=== PATIENT | female | born 1980 | race Hispanic/Latino ===

== ENCOUNTER 2023-10-16 03:40 | Emergency (ER) | payer SELFPAY ==
[~2023-10-16] VITALS: Ht 167.6 cm; Wt 52.2 kg
[2023-10-16] MEDS ORDERED: sulfaMETHOX-TMP DS 800/160 TAB PO SCH (04:30)
[2023-10-16] MEDS ORDERED: CEPH500B PO (04:46)
[2023-10-16] MEDS: cePHALexin 500 MG CAPSULE PO ONE (04:47)
[2023-10-16 04:50] VITALS: BP 132/88; PULSE 98; RESP 17; TEMP 97.5; O2SAT 98
== END 2023-10-16 04:55 | disposition home or self-care (01) ==
LOC: EDH 03:40
DX: L02.212 Cutaneous abscess of back [any part, except buttock and flank] (principal); E11.9 Type 2 diabetes mellitus without complications; Z79.899 Other long term (current) drug therapy

== ENCOUNTER 2024-11-08 13:51 | Emergency (ER) | payer BC ==
[~2024-11-08] VITALS: Ht 167.6 cm; Wt 52.6 kg
[~2024-11-08 13:51] MED LIST: CEPH500B PO
--- NOTE | 2024-11-08 14:45 | NUR ---
PTS FAMILY REPORTED THAT THEY WERE WORRIED PT HAD RISKY BEHAVIOR AND HAD VOICED INTENTION OF "JUMPING OUT OF CAR" YESTERDAY. FAMILY IS CONCERNED FOR PT. DR. HICKEY WAS INFORMED. DR. HICKEY SPOKE TO PT ABOUT COMMENTS MADE YESTERDAY AND CONCERNS ABOUT SI/HI. PT STATES SHE IS NOT SUICIDAL OR HOMICIDAL. PT STATES SHE WAS ANGRY YESTERDAY AND MADE THOSE COMMENTS IN ANGER. PT STATES SHE HAS A LONG HISTORY OF UNTREATED DEPRESSION BUT SHE DOES NOT FEEL LIKE SHE IS IN ANY MORE DANGER THAN USUAL. FAMILY IS CONCERNED BECAUSE SHE WAS IN DETENTION YESTERDAY DUE TO DRUG USE. PT STATES SHE IS NOT HIGH TODAY AND IS HERE IS [facility] ATTEMPTING TO RECEIVE CARE.
--- NOTE | 2024-11-08 15:21 | NUR ---
VAGINAL EXAM PERFORMED BY DR HICKEY, NO PROLAPSE NOTED ON EXAM, NO FECAL MATER MATERIAL NOTED IN VAGINAL CANAL. DR. HICKEY DID NOTE COPIOUS THICK WHITE DISCHARGE ON EXAM. DR. HICKEY ALSO TOOK THIS TIME TO EXAMINE PTS TOENAILS.
[2024-11-08 15:45] LABS: APPEARANCE,URINE CLEAR (CLEAR); GLUCOSE, URINE (UA) >=1000 mg/dL (NEGATIVE); LEUKOCYTE ESTERASE ,URINE 25 Leu/uL (NEGATIVE); NITRATE,URINE NEGATIVE (NEGATIVE); OCCULT BLOOD,URINE NEGATIVE (NEGATIVE); SQUAMOUS EPITHELIAL CELL,UR RARE /HPF (0-2)
[2024-11-08] MEDS ORDERED: CEPH500B PO (16:03)
--- NOTE | 2024-11-08 16:03 | ERN ---
General Chief Complaint: Vaginal Problems/Bleeding Stated Complaint: VAGINAL PAIN Time Seen by MD: 13:55 Source: patient History of Present Illness Initial Comments PATIENT IS A 44-YEAR-OLD FEMALE COMING IN WITH MULTIPLE COMPLAINTS. PER PATIENT SHE FELL 2 L COME OUT SHE WAS TOLD BEFORE THAT SHE HAD A PROLAPSED UTERUS ALONG WITH THE SHE IS COMPLAINING OF LOWER EXTREMITY DISCOMFORT SPECIFICALLY THERE TOENAILS. FAMILY MEMBERS CLOSE PATIENT WANTED TO HARM HERSELF BUT WHEN ASKED PATIENT IN FRONT OF FAMILY MEMBERS HE STATES THAT HE DID NOT WANT TO HURT HERSELF. Allergies: Coded Allergies: No Known Allergies (Unverified Allergy, Unknown, 10/16/23) Home Meds Active Scripts Cephalexin Monohydrate (Keflex) 500 Mg Cap, 500 MG PO TID for 7 Days, #21 CAP Prov:ERICKSON KENNEDY 10/16/23 Past Medical History Past Medical History: No Pertinent History Medical History Other: NON COMPLIANT FOR OVER THREE YEARS Past Surgical History: None ROS Dictation CONSTITUTIONAL: NO CHILLS, NO FEVER, NO WEAKNESS, NO DIAPHORESIS, NO MALAISE. HEAD/FACE: NO SIGNS OF TRAUMA. EENT: NO EYE PAIN, NO BLURRED VISION, NO TEARING, NO DOUBLE VISION, NO EAR PAIN, NO EAR DISCHARGE, NO NOSE PAIN, NO NASAL CONGESTION, NO THROAT PAIN, NO THROAT SWELLING, NO MOUTH PAIN. RESPIRATORY: NO COUGH, NO ORTHOPNEA, NO SOB, NO STRIDOR, NO WHEEZING. CARDIOVASCULAR: NO CHEST PAIN, NO EDEMA, NO PALPITATIONS, NO SYNCOPE. GASTROINTESTINAL/ABDOMINAL: NO ABDOMINAL PAIN, NO CONSTIPATION, NO DIARRHEA, NO NAUSEA, NO VOMITING. GENITOURINARY: ABNORMAL DISCHARGE, NO DYSURIA, NO FREQUENT URINATION, NO HEMATURIA. NO COMPLAINTS OF PAIN IN THE GENITALS. MUSCULOSKELETAL: NO BACK PAIN, NO GOUT, NO JOINT PAIN, NO JOINT SWELLING, NO MUSCLE PAIN, NO MUSCLE STIFFNESS, NO NECK PAIN. INTEGUMENTARY: NO CHANGE IN COLOR, NO CHANGE IN HAIR/NAILS, NO DRYNESS, NO LESION, NO LUMPS, NO RASH. NEUROLOGICAL/PSYCH: NO ANXIETY, NOT DEPRESSED, NO EMOTIONAL PROBLEM, NO HEADACHE, NO NUMBNESS, NO PRE-EXISTING DEFICIT, NO HISTORY OF SEIZURES, NO TREMORS, NO WEAKNESS. HEMATOLOGIC/LYMPHATIC: NOT ANEMIC, NO HISTORY OF BLOOD CLOTS, NO APPARENT BLEEDING, NO BRUISING, GLANDS NOT SWOLLEN. ALL SYSTEMS NEGATIVE, EXCEPT NOTED. Physical Exam Physical Exam Dictation VITAL SIGNS: REVIEWED. GENERAL APPEARANCE: ALERT, ORIENTED X3, NO ACUTE DISTRESS, OBESE. HEAD AND FACE: NON-TRAUMATIC. EYES: PERRL, PINK CONJUNCTIVAS, EYELID NO TRAUMA, ANTERIOR CHAMBER CLEAR. EARS: PINNAS INTACT AND NO SIGNS OF TRAUMA OR ERYTHEMA. EAR CANALS CLEAR AND N O DISCHARGE. TMS NO ERYTHEMA. NOSE: NO DISCHARGE, NO BLEEDING. OROPHARYNX: MOUTH NORMAL, TEETH NO CARIES, TONGUE PINK. PHARYNX CLEAR, NO ERYTHEMA. TONSILS NO EXUDATES, NO ABSCESSES NOTED. MUCOUS MEMBRANE MOIST. NECK: SUPPLE, NON-TENDER, NO THYROMEGALY, NO MASSES, NO JVD, NO BRUITS. BREAST: DEFERRED. CHEST: NO TENDERNESS, NO CREPITUS, NO PARADOXICAL MOVEMENT, NO RETRACTIONS. LUNGS: CLEAR, WELL-VENTILATED, SYMMETRIC, NO RALES, NO WHEEZING, NO RHONCHI, NO STRIDOR, GOOD BREATH SOUNDS BILATERALLY. HEART: REGULAR RATE, REGULAR RHYTHM, NO MURMUR, NO GALLOPS. VASCULAR: NO PERIPHERAL EDEMA. ABDOMEN: SOFT, POSITIVE BOWEL SOUNDS, NONDISTENDED, NO GUARDING, NONTENDER, NO REBOUND, NO MASSES NO HEPATOMEGALY, NO SPLENOMEGALY, NO BELTRAN'S SIGN, NO HERNIAS. RECTAL: DEFERRED. GENITAL: CHAPERONED BY NURSE, VAGINAL DISCHARGE, NO UTERINE PROLAPSE NEUROLOGICAL: NORMAL SPEECH, GROSS MOTOR FUNCTION INTACT, GROSS SENSORY FUNCTION INTACT. MUSCULOSKELETAL: NECK NONTENDER, FULL RANGE OF MOTION, BACK NONTENDER, FULL R NAOMIE OF MOTION. EXTREMITIES: NONTENDER, FULL RANGE OF MOTION. LONG TOENAILS SKIN: COLOR PINK, DRY, NO TURGOR, NO RASH, NO LACERATIONS, NO ABRASIONS, NO CONTUSIONS. LYMPHATICS: DEFERRED. Results Laboratory and Microbiology Lab and Micro Result Laboratory Tests Test 11/08/24 14:06 Urine Color COLORLESS (YELLOW) Urine Appearance CLEAR (CLEAR) Urine pH 5.5 (5.0-8.0) Urine Specific [place] 1.034 (1.001-1.031) Urine Protein NEGATIVE mg/dL (NEGATIVE) Urine Glucose (UA) >=1000 mg/dL (NEGATIVE) H Urine Ketones NEGATIVE mg/dL (NEGATIVE) Urine Occult Blood NEGATIVE (NEGATIVE) Urine Nitrate NEGATIVE (NEGATIVE) Urine Bilirubin NEGATIVE mg/dL (NEGATIVE) Urine Urobilinogen 0.2 mg/dL (0.2-1.0) Urine Leukocyte Esterase 25 [place]/uL (NEGATIVE) H Urine RBC 2-5 /HPF (0-1) H Urine WBC 6-10 /HPF (0-1) H Urine Squamous Epithelial Cells RARE /HPF (0-2) Urine Bacteria RARE /HPF (None Seen) Labs Reviewed?: Yes MDM MDM: DIFFERENTIAL DIAGNOSIS: HISTORY OF PROLAPSED UTERUS, LONG TOENAILS UNKEPT, VAGINAL DISCHARGE RATIONALE: TESTS CONSIDERED AND ORDERED SECONDARY TO SHARED DECISION MAKING INCLUDE: PREVIOUS OUTSIDE RECORDS REVIEWED: OLD ER VISITS. RISK OF COMPLICATION AND/OR MORBIDITY OR MORTALITY OF PATIENT MANAGEMENT: NONE MEDICATIONS-PER MEDICATION RECONCILIATION NEED FOR HOSPITALIZATION: PATIENT DOES NOT MEET CRITERIA FOR HOSPITALIZATION. NEED FOR EMERGENCY MAJOR/MINOR SURGERY: NO PATIENT IS A 44-YEAR-OLD FEMALE COMING IN WITH MULTIPLE COMPLAINTS. PATIENT INITIALLY STATED THAT SHE WANTED TO BE EVALUATED DUE TO A POSSIBLE PROLAPSED UTERUS SHE HAD A HISTORY OF THE AND WAS TOLD BY DR. MLEISA RODRIGUES IN THE PAST THAT SHE HAD PROLAPSE UTERUS BUT SHE IS HERE FOR FURTHER EVALUATION. LONG WITH THIS SHE STATES THAT SHE HAS BEEN HAVING DISCOMFORT IN HER TOENAILS ON VISUAL INSPECTION TOENAILS ARE LONG I DID ADVISED HER APPROPRIATE FOLLOW UP WITH PCP OR DOOR SAMPLE TESTER. DURING THE INTERVIEW FAMILY MEMBERS TOLD NURSE THAT PATIENT WANTED TO JUMP OUT OF HER CAR, WHEN I INTERVIEWED PATIENT AGAIN ACCOMPANIED WITH FAMILY MEMBERS PATIENT STATED SHE DID NOT WANT TO HURT HERSELF WAS MERELY MED. PATIENT WILL BE DISCHARGED IN STABLE CONDITION WITH A DIAGNOSIS OF UTI. ED Course Orders Procedure Category Date Status Time Urinalysis LAB 11/08/24 Complete W/Microscopic 15:21 Chlamydia & Gc Pcr INE[facility] 11/08/24 Logged 15:21 Culture Urine [facility] 11/08/24 In Process 15:46 Vital Signs Date Time Temp Pulse Resp B/P (MAP) Pulse Ox O2 Delivery O2 Flow Rate FiO2 11/08/24 13:54 97.5 92 18 114/75 45 Room Air 0 DX & DISP Disposition: Discharge Departure Impression: Primary Impression: UTI (urinary tract infection) Additional Impressions: Vaginal discharge, History of uterine prolapse Condition: Stable Scripts Cephalexin Monohydrate (Keflex) 500 Mg Cap 1 CAP PO BID for 10 Days, #20 CAP 0 Refills Prov: ALEC HICKEY MD 11/08/24 Additional Instructions: FOLLOW-UP WITH PRIMARY CARE PROVIDER IN 1 TO 2 DAYS. TAKE MEDICATIONS DIRECTED HERE IN THE EMERGENCY ROOM. OKAY TO CONTINUE HOME MEDICATIONS UNLESS OTHERWISE DISCUSSED DURING YOUR VISIT IN THE EMERGENCY ROOM TODAY. RETURN TO YOUR NEAREST EMERGENCY ROOM IF SYMPTOMS WORSEN OR IF THERE IS NO IMPROVEMENT. CALL 911 IF YOU NEED IMMEDIATE ASSISTANCE. TAKE TYLENOL [id number] NEEDED AND IF NO CONTRAINDICATIONS ARE PRESENT. INCREASE ORAL HYDRATION. A WOUND CULTURE OR URINE CULTURE WAS ORDERED HERE IN THE EMERGENCY ROOM DEPARTMENT PLEASE FOLLOW-UP WITH PRIMARY CARE PROVIDER AND ADVISE THEM TO GET REPORTS FROM OUR FACILITY. IF YOU HAD ANY ANITA WRAP/SPLINTS THAT WERE APPLIED HERE, PLEASE DO NOT REMOVE THEM UNTIL YOU SEE YOUR PRIMARY CARE OR SPECIALTY. REFERRALS: Referrals: SELF,REFERRAL (PCP) BARB DOSS MD, LUIS A MD Time of Disposition: 16:02 ALEC HICKEY MD Nov 08, 2024 16:03
[2024-11-08 16:28] VITALS: BP 126/59; PULSE 71; RESP 16; TEMP 97.5; O2SAT 97
== END 2024-11-08 16:30 | disposition home or self-care (01) ==
LOC: EDH 13:51
DX: N39.0 Urinary tract infection, site not specified (principal); N89.8 Other specified noninflammatory disorders of vagina
CPT/HCPCS: 81001; 87086; 87186; 99283; 99284